=== PATIENT | male | born 1955 | race Caucasian/White ===

== ENCOUNTER 2021-06-10 07:58 | Outpatient (CLI) | payer MEDICARE | END 2021-06-10 07:59 | disposition home or self-care (01) | LOC: CSHULT 07:58 | PROVIDERS: ATTEND Family Medicine | DX: Z13.6 Encounter for screening for cardiovascular disorders (principal) | CPT/HCPCS: 76775 ==

== ENCOUNTER 2021-08-15 13:31 | Outpatient (CLI) | payer MEDICARE | END 2021-08-15 13:32 | disposition home or self-care (01) | LOC: CSHCT 13:31 | PROVIDERS: ATTEND Family Medicine | DX: Z12.2 Encounter for screening for malignant neoplasm of respiratory organs (principal); F17.210 Nicotine dependence, cigarettes, uncomplicated | CPT/HCPCS: 71271 ==

== ENCOUNTER 2023-05-03 10:44 | Outpatient (CLI) | payer OTHER ==
[~2023-05-03 10:44] MED LIST: Iopamidol 300 61% 100 ML VIAL FS ONE
== END 2023-05-03 10:45 | disposition home or self-care (01) ==
LOC: CSHCT 10:44
PROVIDERS: ATTEND Otolaryngology Plastic Surgery within the Head & Neck
DX: R22.1 Localized swelling, mass and lump, neck (principal)
CPT/HCPCS: 70491; 82565

== ENCOUNTER 2023-11-22 09:35 | Outpatient (CLI) | payer OTHER | END 2023-11-22 09:36 | disposition home or self-care (01) | LOC: CSHULT 09:35 | PROVIDERS: ATTEND Family Medicine | DX: Z13.6 Encounter for screening for cardiovascular disorders (principal); Z12.2 Encounter for screening for malignant neoplasm of respiratory organs; F17.210 Nicotine dependence, cigarettes, uncomplicated; J42 Unspecified chronic bronchitis; J43.8 Other emphysema | CPT/HCPCS: 71271; 76706 ==